=== PATIENT | female | born 1965 | race Caucasian/White ===

== ENCOUNTER 2018-10-05 07:14 | Day surgery (SDC) | payer OTHER ==
[2018-10-05] MEDS ORDERED: PROPOFOL 40 ML (09:31)
[2018-10-05] MEDS ORDERED: LIDOCAINE 2% (SDV) 5 ML INJ (09:31)
[2018-10-05] MEDS ORDERED: ONDANSETRON 4 MG INJ IV ×2 (10:30→11:30)
[2018-10-05] MEDS ORDERED: ONDANSETRON 4 MG INJ (11:11)
[2018-10-05] MEDS: INSULIN ASPART [NOVOLOG] 3 ML PEN SC (11:15)
[2018-10-05] MEDS ORDERED: PROPOFOL 20 ML (11:15)
[2018-10-05] MEDS ORDERED: ONDANSETRON 4 MG TAB PO (11:30)
== END 2018-10-05 13:24 | disposition home or self-care (01) ==
LOC: GIL 07:14
DX: Z12.11 Encounter for screening for malignant neoplasm of colon (principal); K64.1 Second degree hemorrhoids; K20.9 Esophagitis, unspecified; I10 Essential (primary) hypertension; E11.9 Type 2 diabetes mellitus without complications; Z79.82 Long term (current) use of aspirin
CPT/HCPCS: 43239; 82962; 88305; 88312